=== PATIENT | female | born 1995 | race Caucasian/White ===

== ENCOUNTER 2019-02-24 12:47 | Emergency (ER) | payer BC ==
[2019-02-24 12:55] VITALS: BP 131/85
--- NOTE | 2019-02-24 13:24 | ER Document Report ---
HPI - HPI Time Seen by Provider: 02/24/19 13:15 Pain Level: 3 Notes: Patient is a 23-year-old female with no significant past medical history and last tetanus reported to be last year who presents requesting wound check after she had a laceration superglued 4 days ago. Patient states that she cut the left thumb with a clean knife 5 days ago and was seen at urgent care the day after and had superglue placed. Patient states that she wanted evaluated today. No other concerns or complaints. Denies drug allergies. She is currently on Keflex. Denies any headache, fever, neck pain, URI, sore throat, chest pain, palpitations, syncope, cough, shortness of breath, wheeze, dyspnea, abdominal pain, nausea/vomiting/diarrhea, urinary retention, dysuria, hematuria, loss of control of bowel or bladder, numbness/tingling, muscle paralysis/weakness, or rash. - ROS Systems Reviewed and Negative: Yes All other systems reviewed and negative - CONSTITUTIONAL Constitutional: DENIES: Fever, Chills - REPRODUCTIVE Reproductive: DENIES: : Past Medical History - Social History Smoking Status: Never Smoker Frequency of alcohol use: None Drug Abuse: None Family History: Reviewed & Not Pertinent Patient has suicidal ideation: No Patient has homicidal ideation: No Renal/ Medical History: Denies: Hx Peritoneal Dialysis Vertical Provider Document - CONSTITUTIONAL Agree With Documented VS: Yes Notes: PHYSICAL EXAMINATION: GENERAL: Well-appearing, well-nourished and in no acute distress. LUNGS: Breath sounds clear to auscultation bilaterally and equal. No wheezes rales or rhonchi. HEART: Regular rate and rhythm without murmurs, rubs, gallops. Musculoskeletal: Left thumb: FROM to passive/active. Strength 5+/5. N/V intact distal. Extremities: No cyanosis, clubbing, or edema b/l. Peripheral pulses 2+. Capillary refill less than 3 seconds. NEUROLOGICAL: Cranial nerves grossly intact. Normal speech, normal gait. Normal sensory, motor exams PSYCH: Normal mood, normal affect. SKIN: Left thumb: laceration covered in superglue. the medial 1/3 of the glue was lifted/cut as it did appear to have a very small amount of purulent material vs serosanguinous. This will allow for drainage if needed for future as well as initial investigation. No erythema, warmth, induration, streaks. Non-tender. Wound otherwise appears to be healing. Course - Re-evaluation Re-evalutation: 02/24/19 13:22 Patient is an afebrile, well-hydrated, 23-year-old female who presents to the ED for wound check. Vitals are acceptable without any significant tachycardia, tachypnea, or hypoxia. PE is otherwise unremarkable for any neurovascular compromise, obvious tendon/ligament rupture, obvious fracture/dislocation, septic joint. Patient is nontoxic-appearing. No other labs or imaging warranted at this time based on H&P. I boss witch her to Augmentin as it was difficult to assess if there was scant purulence vs. serosanguineous fluid. Conservative measures otherwise for symptoms. Recheck with your PCM in 3-5 days. Consider consult orthopedics. Return to the ED with any worsening/concerning symptoms otherwise as reviewed in discharge. Patient is in agreement. - Vital Signs Vital signs: Temp Pulse Resp BP Pulse Ox 99.0 F 105 H 14 131/85 H 100 02/24/19 12:53 02/24/19 12:53 02/24/19 12:53 02/24/19 12:53 02/24/19 12:53 Discharge - Discharge Clinical Impression: Encounter for wound re-check Condition: Stable Disposition: HOME, SELF-CARE Instructions: Prophylactic Antibiotic ([facility]), Soap Cleansing ([facility]), Antibiotic Ointment Protection ([facility]) Additional Instructions: Keep the skin clean and avoid submersion under any water until wound is healed Wash with soap and water Tylenol/ibuprofen if needed Triple antibiotic ointment daily x2-3 days Take medication as directed Monitor for any worsening symptoms Recheck with your PCM in 3-5 days Return to the ED with any worsening symptoms and/or development of fever, heada kailey, chest pain, palpitations, syncope, shortness of breath, trouble breathing, abdominal pain, n/v/d, abscess, purulent discharge, red streaks, worsening swelling, or other worsening symptoms that are concerning to you. Prescriptions: Amox Tr/Potassium Clavulanate [Augmentin 875-125 Tablet] 1 tab PO BID 10 Days #14 tablet Forms: Elevated Blood Pressure Referrals: [facility] ([id number] [Provider Group] - Follow up as needed
== END 2019-02-24 13:28 | disposition home or self-care (01) ==
LOC: ER 12:47
DX: S61.012D Laceration without foreign body of left thumb without damage to nail, subsequent encounter (principal); W26.0XXD Contact with knife, subsequent encounter
CPT/HCPCS: 99282